=== PATIENT | female | born 1985 | race African-American/Black ===

== ENCOUNTER 2017-02-04 14:26 | Emergency (ER) | payer OTHER ==
[2017-02-04 14:34] VITALS: BMI 21.5
--- NOTE | 2017-02-04 14:56 | PDOC ---
History of Present Illness - History of Present Illness Initial Comments: 02/04/17 15:24 The pt is a 31 year old female who is 10 weeks with a PMH of fibromyalgia, anxiety, one spontaneous who presents to the ED complaining of generalized itchiness and hives for 6 weeks.The pt is also complaining af abdominal cramping, nausea, vomiting, loss of appetite. She lost 3 lbs in a week and is concerned about her baby. She didn't have US yet. She denies taking any medications besides vitamins and folic acid. The pt states that she had anxiety attack while being in waiting room in ED today. She visited her ELIGIBILITY AND OCCUPANCY INTERVIEWER 2 weeks ago and states that everything was normal. She denies vaginal discharge, bleeding, chest pain, SOB, cough, fever, chills. She denies dysuria, increased frequency, urgency, muscle pain, LOC. <Suzanne Reagan - Last Filed: 02/04/17 16:23> <Kathy Noonan - Last Filed: 02/05/17 15:46> - General Chief Complaint: Nausea/Vomiting Stated Complaint: Allergic Reaction Time Seen by Provider: 02/04/17 14:55 Past History - Past Medical History Psychiatric Problems: Yes (anxeity,panic attack) Other medical history: hives on body, fibromyalgia - Psycho/Social/Smoking Cessation Hx Anxiety: No Suicidal Ideation: No Smoking Status: No Smoking History: Never smoked Have you smoked in the past 12 months: No Number of Cigarettes Smoked Daily: 0 Information on smoking cessation initiated: No Hx Alcohol Use: No Drug/Substance Use Hx: No Substance Use Type: None <Suzanne Reagan - Last Filed: 02/04/17 16:23> <Kathy Noonan - Last Filed: 02/05/17 15:46> - Past Medical History Allergies/Adverse Reactions: Allergies Allergy/AdvReac Type Severity Reaction Status Date / Time No Known Allergies Allergy Verified 02/04/17 14:28 Review of Systems - Review of Systems Able to Perform ROS?: Yes Comments:: 02/04/17 15:47 REVIEW OF SYSTEMS CONSTITUTIONAL: loss of appetite, weight change Absent: fever, chills, diaphoresis, generalized weakness, malaise, HEENT: Absent: rhinorrhea, nasal congestion, throat pain, throat swelling, difficulty swallowing, mouth swelling, ear pain, eye pain, visual changes CARDIOVASCULAR: Absent: chest pain, syncope, palpitations, irregular heart rate, lightheadedness , peripheral edema RESPIRATORY: Absent: cough, shortness of breath, dyspnea with exertion, orthopnea, wheezing, stridor, hemoptysis GASTROINTESTINAL:nausea Absent: abdominal pain, abdominal distension, vomiting, diarrhea, constipation, melena, hematochezia GENITOURINARY: Absent: dysuria, frequency, urgency, hesitancy, hematuria, flank pain, genital pain MUSCULOSKELETAL: Absent: myalgia, arthralgia, joint swelling, back pain, neck pain SKIN: Absent: rash, itching, pallor NEUROLOGIC: Absent: headache, focal weakness or paresthesias, dizziness, unsteady gait, seizure, mental status changes, bladder or bowel incontinence PSYCHIATRIC: Absent: depression Is the patient limited Dominican proficient: No <Suzanne Reagan - Last Filed: 02/04/17 16:23> *Physical Exam - Vital Signs Last Vital Signs Temp Pulse Resp BP Pulse Ox 98.4 F 84 18 110/63 100 02/04/17 14:29 02/04/17 14:29 02/04/17 14:29 02/04/17 14:29 02/04/17 14:29 - Physical Exam Comments: 02/04/17 15:45 GENERAL: The patient is awake, alert, and fully oriented,anxious. HEAD: Normal with no signs of trauma. EYES: extraocular movements intact, sclera anicteric, conjunctiva clear. ENT: Ears normal, nares patent, oropharynx clear without exudates, moist mucous membranes. NECK: Trachea midline, full range of motion, supple. LUNGS: Breath sounds equal, clear to auscultation bilaterally, no wheezes, no crackles, no accessory muscle use. HEART: Regular rate and rhythm, S1, S2 without murmur, rub or gallop. ABDOMEN: Soft, nontender, nondistended, normoactive bowel sounds, no guarding, no rebound, no hepatosplenomegaly, no masses. EXTREMITIES: no edema. NEUROLOGICAL: Normal speech, no facial asymmetry, gait not observed. PSYCH: Normal mood, normal affect. SKIN: Warm, dry, normal turgor, no hives, no rash. <Suzanne Reagan - Last Filed: 02/04/17 16:23> - Vital Signs Last Vital Signs Temp Pulse Resp BP Pulse Ox 98.3 F 82 20 103/50 98 02/04/17 17:52 02/04/17 17:52 02/04/17 17:52 02/04/17 17:52 02/04/17 17:52 <Kathy Noonan - Last Filed: 02/05/17 15:46> ED Treatment Course - LABORATORY CBC & Chemistry Diagram: 02/04/17 15:41 02/04/17 15:41 <Suzanne Reagan - Last Filed: 02/04/17 16:23> - LABORATORY CBC & Chemistry Diagram: 02/04/17 15:41 02/04/17 15:41 - ADDITIONAL ORDERS Additional order review: 02/04/17 15:41 RBC 3.77 MCV 88.7 MCHC 33.7 RDW 14.1 MPV 7.5 - Medications Given in the ED: ED Medications Discontinued Medications Generic Name Dose Route Start Last Admin Trade Name Freq PRN Reason Stop Dose Admin Sodium Chloride 1,000 mls @ 1,000 mls/hr 02/04/17 15:37 02/04/17 16:08 Normal Saline - IV 02/04/17 16:36 1,000 mls/hr ASDIR STA Administration <Kathy Noonan - Last Filed: 02/05/17 15:46> Medical Decision Making - Medical Decision Making 02/04/17 15:48 The pt is a 31 year old female with a PMGH of miscarriage, fibromyalgia , anxiety who presents to ED complaining of cramping, itchiness and is concerned about her baby. We ordered quant. B HCG, UA, transvaginal US, CBC, CMP. NS 1 L. <Suzanne Reagan - Last Filed: 02/04/17 16:23> - Medical Decision Making SIGN OUT Case discussed in detail with oncoming Emergency Physician including history, physical exam and ancillary studies. Oncoming Emergency Physician has assumed care for the patient and will complete the evaluation and treatment. Transfer of care to Dr. Beckman at 5 PM awaiting all studies <Kathy Noonan - Last Filed: 02/05/17 15:46> *DC/Admit/Observation/Transfer <Suzanne Reagan - Last Filed: 02/04/17 16:23> <Kathy Noonan - Last Filed: 02/05/17 15:46> Diagnosis at time of Disposition: Qualifiers: Weeks of gestation: 9 weeks Qualified Code(s): Z3A.09 - 9 weeks gestation of - Discharge Dispostion Disposition: HOME Condition at time of disposition: Stable - Prescriptions Prescriptions: Ondansetron [Zofran Odt -] 4 mg SL BID #10 od.tablet - Patient Instructions Printed Discharge Instructions: DI for Anxiety -- Adult, DI for -- Discomforts and Remedies Additional Instructions: please continue your care with greige goods marker
[2017-02-04] MEDS ORDERED: SODIUM CHLORIDE 1,000 ML IV STA (15:37)
--- NOTE | 2017-02-04 15:40 | PDOC ---
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 They are and go away, and are associated with itching She did go to [facility], for evaluation She states she was getting some more hives today, and came in to be seen, and while in the waiting room became very anxious She came back here, and the hives were gone She states the hives are unrelated to eating or drinking She has had a lot of nausea and vomiting associated with this She denies any vaginal bleeding or spotting She denies any dysuria urgency or frequency She states that she has not had a ultrasound with this She denies any recent intercurrent illnesses, and the remainder the review of systems is negative - Physicial Exam PE: 02/04/17 16:47 Physical exam Last Vital Signs Temp Pulse Resp BP Pulse Ox 98.4 F 84 18 110/63 100 02/04/17 14:29 02/04/17 14:29 02/04/17 14:29 02/04/17 14:29 02/04/17 14:29 Patient is awake and ambulatory, and answering questions without difficulty GENERAL: The patient is awake, alert, and fully oriented, and in no apparent distress. HEAD: Normal with no signs of trauma. EYES: sclera anicteric, conjunctiva are normal. ENT: Moist mucous membranes. NECK: Normal range of motion, supple LUNGS: Breath sounds equal, clear to auscultation bilaterally. No wheezes, and no crackles. HEART: Regular rate and rhythm, normal S1 and S2 without murmur, rub or gallop. ABDOMEN: Soft, nontender, normoactive bowel sounds. No guarding, no rebound. No masses appreciated. EXTREMITIES: Normal range of motion, no edema. No clubbing or cyanosis. No cords, erythema, or tenderness. NEUROLOGICAL: Cranial nerves II through XII grossly intact. Normal speech, normal gait. PSYCH: Normal mood, normal affect. SKIN: Warm, Dry, no hives or rashes are noted at this time - Medical Decision Making 02/04/17 16:48 Patient with transient hives during this , who was already seen an manager occupational She denies any vaginal spotting or bleeding She has had a visit, but has not had her first ultrasound Will check labwork, quantitative beta, ultrasound, and call her SCLEROSCOPE TESTER SIGN OUT Case discussed in detail with oncoming Emergency Physician including history, physical exam and ancillary studies. Oncoming Emergency Physician has assumed care for the patient and will complete the evaluation and treatment. Transfer of care to Dr. Beckman at 5 PM awaiting all studies
[2017-02-04 16:04] LABS: MCH 29.9 pg (25.7-33.7); MCHC 33.7 g/dl (32.0-36.0); MEAN CELL VOLUME 88.7 fl (80-96); MEAN PLT VOLUME 7.5 fl (7.5-11.1); PLATELET COUNT 198 K/MM3 (134-434); RDW 14.1 % (11.6-15.6); WHITE BLOOD COUNT 9.9 K/mm3 (4.0-10.0)
[2017-02-04 16:30] LABS: ALBUMIN 3.6 g/dl (3.4-5.0); ALK PHOS 57 U/L (45-117); ANION GAP 9 (8-16); BILIRUBIN,TOTAL 0.2 mg/dL (0.2-1.0); CO2 25 mmol/L (21-32); CREATININE 0.5 mg/dL (0.55-1.02); GLUCOSE,RANDOM 74 mg/dL (74-106); SGOT/AST 20 U/L (15-37); SGPT/ALT 32 U/L (12-78); TOT PROT 6.7 g/dl (6.4-8.2)
[2017-02-04 17:53] VITALS: BP 103/50; PULSE 82; TEMP 98.3
--- NOTE | 2017-02-04 17:55 | PDOC ---
*Physical Exam - Vital Signs Last Vital Signs Temp Pulse Resp BP Pulse Ox 98.3 F 82 20 103/50 98 02/04/17 17:52 02/04/17 17:52 02/04/17 17:52 02/04/17 17:52 02/04/17 17:52 ED Treatment Course - LABORATORY CBC & Chemistry Diagram: 02/04/17 15:41 02/04/17 15:41 - ADDITIONAL ORDERS Additional order review: Laboratory Results 02/04/17 02/04/17 02/04/17 15:41 15:41 15:41 Sodium 139 Potassium 4.2 Chloride 105 Carbon Dioxide 25 Anion Gap 9 BUN 6 L Creatinine 0.5 L Creat Clearance w eGFR > 60 Random Glucose 74 Calcium 9.0 Total Bilirubin 0.2 AST 20 ALT 32 Alkaline Phosphatase 57 Total Protein 6.7 Albumin 3.6 Beta HCG, Quant 859849.5 Blood Type O POSITIVE Antibody Screen Negative 02/04/17 15:41 RBC 3.77 MCV 88.7 MCHC 33.7 RDW 14.1 MPV 7.5 - Medications Given in the ED: ED Medications Discontinued Medications Generic Name Dose Route Start Last Admin Trade Name Freq PRN Reason Stop Dose Admin Sodium Chloride 1,000 mls @ 1,000 mls/hr 02/04/17 15:37 02/04/17 16:08 Normal Saline - IV 02/04/17 16:36 1,000 mls/hr ASDIR STA Administration *DC/Admit/Observation/Transfer Diagnosis at time of Disposition: Qualifiers: Weeks of gestation: 9 weeks Qualified Code(s): Z3A.09 - 9 weeks gestation of - Discharge Dispostion Disposition: HOME Condition at time of disposition: Stable - Patient Instructions Printed Discharge Instructions: DI for -- Discomforts and Remedies, DI for Anxiety -- Adult Additional Instructions: please continue your care with tube drawer
== END 2017-02-04 18:26 | disposition home or self-care (01) ==
LOC: JER 14:26
PROC: 3E0337Z Introduction of Electrolytic and Water Balance Substance into Peripheral Vein, Percutaneous Approach (ICD-10-PCS; principal; 2017-02-04)
DX: O26.891 Other specified pregnancy related conditions, first trimester (principal); Z3A.09 9 weeks gestation of pregnancy
CPT/HCPCS: 36415; 76801-TC; 80053; 84702; 85027; 86850; 86900; 86901; 99283-25

== ENCOUNTER 2017-09-05 10:40 | Inpatient (IN) | payer OTHER ==
[2017-09-05] MEDS ORDERED: DINOPROSTONE 10 MG VAGINAL SUPPOSITORY VG ONE (11:30)
[2017-09-05 13:43] VITALS: BMI 30.7
[2017-09-05 14:07] LABS: BASOPHIL 0.1 % (0-2.0); EOSINOPHIL 0.3 % (0-4.5); MCH 30.3 pg (25.7-33.7); MCHC 34.2 g/dl (32.0-36.0); MEAN CELL VOLUME 88.5 fl (80-96); MEAN PLT VOLUME 10.2 fl (7.5-11.1); NEUTROPHILS 76.7 % (42.8-82.8); PLATELET COUNT 154 K/MM3 (134-434); RDW 14.1 % (11.6-15.6); WHITE BLOOD COUNT 7.1 K/mm3 (4.0-10.0)
[2017-09-05 14:32] LABS: ANION GAP 8 (8-16); CALCIUM 8.4 mg/dL (8.5-10.1); CO2 22 mmol/L (21-32); CREATININE 0.4 mg/dL (0.55-1.02); GLUCOSE,RANDOM 94 mg/dL (74-106)
[2017-09-05 14:38] LABS: INR 0.96 (0.82-1.09); PROTHROMBIN TIME (PATIENT) 10.9 SEC (9.98-11.88)
[2017-09-05 14:40] LABS: ACTIVATED PTT 27.2 SECONDS (26.9-34.4)
--- NOTE | 2017-09-05 15:31 | HP ---
Admitting History and Physical - Admission Chief Complaint: labor pains, LOF History of Present Illness: 31 y/o G1 at 40.4 weeks seen in the clinic today and had pos nitazine with lof. Upon arrival to hospital for eval, nitazine is negative and sent fro eric that was dcreased from yesterday. She is a pt of [facility]. GBS neg, hiv neg, rpr neg EFW is 7.5 lbs, vtx History Source: Patient Limitations to Obtaining History: No Limitations - Past Medical History PREMISES TECHNICIAN: No: Alzheimer's, CVA, Dementia, Migraine, Multiple Sclerosis, Peripheral Neuropathy, Parkinson's, Seizure, Syncope, TIA, Vertigo, Other Cardiovascular: No: AFIB, Aneurysm, Aortic Insufficiency, Aortic Stenosis, CAD, CHF, Deep Vein Thrombosis, HTN, Hyperlipdemia, [place], Mitral Insufficiency, Mitral Stenosis, Murmur, Pulmonary Hypertension, Other Pulmonary: No: Asthma, Bronchitis, Cancer, COPD, O2 Dependent, Pneumonia, Previously Intubated, Pulmonary Embolus, Pulmonary Fibrosis, Sleep Apnea, Other Gastrointestinal: No: Ascites, Cancer, Constipation, Crohn's Disease, Diverticulitis, Diverticulosis, Esophageal Varices, Gastritis, GERD, GI Bleed, Hemorrhoids, Hiatal Hernia, Inflamatory Bowel Disease, Irritable Bowel Disease, Pancreatitis, Peptic Ulcer Disease, Ulcerative Colitis, Other Hepatobiliary: No: Cirrhosis, Cholelithiasis, Cholecystitis, Choledocholithiasis , Hepatitis A, Hepatitis B, Hepatitis C, Other Renal/: No: Renal Failure, Renal Inusuff, BPH, Cancer, Hematuria, Hemodialysis , Neurogenic Bladder, Renal Calculi, UTI, Other Reproductive: No: Ectopic , Endometriosis, Fibroids, PID, Polycystic Ovary Syndrome, Postmenopausal, Other ...LMP: 01/09/12 ...: 2 ...Para: 0 Heme/Onc: No: Anemia, B12 Deficiency, Bleeding Disorder, Cancer, Current Chemotherapy, Current Radiation Therapy, Hemochromatosis, Hypercoaguable State, Myeloproliferative Synd, Sickle Cell Disease, Sickle Cell Trait, Thrombocytopenia, Other Infectious Disease: No: AIDS, C-Diff, Herpes Zoster, HIV, MRSA, STD's, Tuberculosis, VREF, Other Psych: No: Addictions, Anxiety, Bipolar, Depression, Panic, Psychosis, Schizophrenia, Other Musculoskeletal: No: Bursitis, Chronic low back pain, Hemiparesis, Hemiplegia, Osteoarthritis, Paraplegia, Other Rheumatology: No: Fibromyalgia, Gout, Lupus, Rheumatoid Arthritis, Sarcoidosis, Vasculitis, Other ENT: No: Allergic Rhinitis, Sinusitis, Other Endocrine: No: Columbia's Disease, Celestine's Disease, Diabetes Insipidus, Diabetes Mellitus, Hyperparathyroidism, Hyperthyroidism, Hypothyroidism, Osteopenia, SIADH, Other Dermatology: No: Basal Cell, Cellulitis, Eczema, Melanoma, Psoriasis, Squamous Cell, Other - Past Surgical History Past Surgical History: No: None, AAA Repair, AICD, Amputation, Appendectomy, Arthrosocopy, AV Fistula/Graft, Bariatric Surgery, Breast Biopsy, Bypass, CABG, Carotid Endarterectomy, Cataract Removal, Cholecystectomy, Colectomy, Colonoscopy, Colostomy, Craniotomy, , Cystectomy, Hernia Repair, Hysterectomy, Ileal Conduit, Ileosotomy, Joint Replacement, Kidney Transplant, Laminectomy, Liver Transplant, Mastectomy, Nephrectomy, Oopherectomy, Orchiectomy, Permanent Pacemaker, Prostatectomy, Splenectomy, Stent, Thoracotomy , TURP, Tonsillectomy, Tubal Ligation, Upper Endoscopy, Valve Replacement, Vasectomy, Vein Stripping/Ligation - Advance Directives Advance Directives: No: Living Will, Health Care Proxy, DNR, Organ Donor, Tissue Donor, MOLST - Smoking History Smoking history: Never smoked Have you smoked in the past 12 months: No Aproximately how many cigarettes per day: 0 - Alcohol/Substance Use Hx Alcohol Use: No History of Substance Use: denies: None, Cocaine, Heroin, Marijuana, Prescription , Tranquilizers - Social History Usual Living Arrangement: No: Alone, With Spouse, With Parent, With Significant Other, With Child, Assisted Living, Long Term, Other Home Medications - Allergies Allergies/Adverse Reactions: Allergies Allergy/AdvReac Type Severity Reaction Status Date / Time No Known Allergies Allergy Verified 09/05/17 11:35 - Home Medications Home Medications: Ambulatory Orders Ferrous Gluconate [Iron] 256 mg PO DAILY 09/05/17 Vit No.130/Iron/FA [ Vitamins] 1 each PO DAILY 09/05/17 Review of Systems - Review of Systems Constitutional: reports: No Symptoms Eyes: reports: No Symptoms HENT: reports: No Symptoms Neck: reports: No Symptoms Cardiovascular: reports: No Symptoms Respiratory: reports: No Symptoms Gastrointestinal: reports: No Symptoms Genitourinary: reports: No Symptoms Breasts: reports: No Symptoms Reported Musculoskeletal: reports: No Symptoms Integumentary: reports: No Symptoms Neurological: reports: No Symptoms Endocrine: reports: No Symptoms Hematology/Lymphatic: reports: No Symptoms Psychiatric: reports: No Symptoms Physical Examination Vital Signs: Vital Signs Temperature 97.6 F 09/05/17 14:00 Pulse Rate 79 09/05/17 15:00 Respiratory Rate 18 09/05/17 15:00 Blood Pressure 115/70 09/05/17 15:00 O2 Sat by Pulse Oximetry (%) Constitutional: Yes: Well Nourished Eyes: Yes: WNL HENT: Yes: WNL Neck: Yes: WNL, Tenderness Cardiovascular: Yes: WNL Respiratory: Yes: WNL Gastrointestinal: Yes: WNL Renal/: Yes: WNL Breast(s): Yes: WNL Musculoskeletal: Yes: WNL Extremities: Yes: WNL Integumentary: Yes: WNL Neurological: Yes: WNL Labs: CBC, BMP 09/05/17 13:40 09/05/17 13:40 Assessment/Plan as above admit labs cat one tracing and 2 cm and posterior. reg diet
[2017-09-05] MEDS: ELECTROLYTE-148 SOLN 1,000 ML IV SCH (22:30)
[2017-09-05] MEDS ORDERED: FENTANYL/BUPIVACAINE/NS/PF - PCEA - 50 ML DISP.SYRIN EP SCH (22:45)
[2017-09-06] MEDS ORDERED: PROMETHAZINE HCL 25 MG/1 ML VIAL IVPB ONE (01:00)
[2017-09-06] MEDS ORDERED: BUTORPHANOL TARTRATE 1 MG/ML VIAL IVPB ONE (01:00)
[2017-09-06] MEDS ORDERED: AMPICILLIN - 100 ML IVPB ONE (02:00)
[2017-09-06] MEDS: AMPICILLIN - 100 ML IVPB SCH ×5 (06:00→23:35)
--- NOTE | 2017-09-06 06:33 | PN ---
Ante-Partal Exam - Subjective Vital Signs: Vital Signs Temperature 98.0 F 09/06/17 05:00 Pulse Rate 94 H 09/06/17 05:40 Respiratory Rate 20 09/06/17 05:40 Blood Pressure 100/75 09/06/17 05:40 O2 Sat by Pulse Oximetry (%) 98 09/06/17 05:40 Bleeding: No Headache: No Visual changes: No Right upper quadrant pain: No - Contractions Contractions: Yes Regularity: Irregular Intensity: Mild Monitor Mode: External - Exam during Labor Heart Rate: 150 Variability: Moderate Heart Rate Location: Midline Category: I Monitor Accelerations: Present Exam: Vaginal Dilatation (cm): 4 Amniotic Membrane Status: Ruptured Presentation: Vertex Station: -3 - Assessment/Plan Assessment/Plan: pt received an epidural and now 4 cm comfortable on antibiotics for presumed srom although membrane felt
[2017-09-06] MEDS ORDERED: OXYTOCIN 15 UNITS/ LR 250 ML 250 ML IVPB SCH (06:45)
[2017-09-06] MEDS: ELECTROLYTE-148 SOLN 1,000 ML IV SCH (14:20)
--- NOTE | 2017-09-06 14:30 | PN ---
Progress Note, Labor Vaginal Exam #2 Labor Exam Date: 09/06/17 Labor Exam Time: 14:27 Heart Rate (range): 130 mod dena, +accel, no decels, no baseline change Dilatation: 6-7 Effacement (%): 80 Amniotic Membrane Status: Ruptured Presentation: Vertex/Position Station: -2 Remarks: forebag ruptured Pt admitted with srom, on pitocin. continue current management anticipate Dr. Almonte
--- NOTE | 2017-09-06 16:25 | PN ---
Ante-Partal Exam - Subjective Vital Signs: Vital Signs Temperature 98.6 F 09/06/17 15:15 Pulse Rate 125 H 09/06/17 15:15 Respiratory Rate 18 09/06/17 15:15 Blood Pressure 92/78 09/06/17 15:15 O2 Sat by Pulse Oximetry (%) 99 09/06/17 15:15 Bleeding: No Headache: No Visual changes: No Right upper quadrant pain: No - Contractions Contractions: Yes Regularity: Regular Intensity: Mild/Mod Monitor Mode: External - Exam during Labor Heart Rate: 130 Variability: Moderate Category: I Monitor Accelerations: Present Monitor Decelerations: None Exam: Vaginal Dilatation (cm): 7-8 Effacement (%): 90 Amniotic Membrane Status: Ruptured Presentation: Vertex Station: 0 Remarks: pt on pitocin continue to titrate cat 1 tracing cont current management
--- NOTE | 2017-09-06 18:49 | PN ---
Ante-Partal Exam - Subjective Vital Signs: Vital Signs Temperature 98.1 F 09/06/17 18:00 Pulse Rate 73 09/06/17 17:30 Respiratory Rate 18 09/06/17 17:30 Blood Pressure 122/74 09/06/17 17:30 O2 Sat by Pulse Oximetry (%) 99 09/06/17 17:30 Bleeding: No Headache: No Visual changes: No Right upper quadrant pain: No - Contractions Contractions: Yes Regularity: Regular Intensity: Moderate Monitor Mode: External - Exam during Labor Heart Rate: 130 Variability: Moderate Category: II Monitor Accelerations: Present Monitor Decelerations: Variable Exam: Vaginal Dilatation (cm): 8-9 Effacement (%): 100 Amniotic Membrane Status: Ruptured Amniotic Fluid: Clear Presentation: Vertex Station: 0 - Assessment/Plan Assessment/Plan: active labor continue pitocin expectant management
[2017-09-06] MEDS ORDERED: BISACODYL 10 MG SUPP.RECT RC PRN (20:56)
[2017-09-06] MEDS ORDERED: oxyCODONE HCL 5 MG TABLET PO PRN (20:56)
[2017-09-06] MEDS ORDERED: BENZOCAINE 20% 57 GM BOTTLE TP PRN (20:56)
[2017-09-06] MEDS ORDERED: ACETAMINOPHEN 325 MG TABLET (FP) PO PRN (20:56)
[2017-09-06] MEDS ORDERED: IBUPROFEN 600 MG TABLET (FP) PO PRN (20:56)
[2017-09-06] MEDS ORDERED: BENZOCAINE 28 GM HEMORRHOIDAL OINTMENT TP PRN (20:56)
[2017-09-06] MEDS ORDERED: WITCH HAZEL 50% (TUCKS) 40 PAD/JAR PAD TP PRN (20:56)
--- NOTE | 2017-09-06 20:56 | PN ---
Delivery - Delivery Vaginal Delivery: Spontaneous Type of Anesthesia: Local, Epidural Episiotomy/Laceration: 2nd degree EBL (cc): 500 Delivery, Single - Stages of Labor Placenta: Yes: Spontaneous, Uterine Exploration, Normal 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 - Condition of Infant Infant Gender: Female Position: Left, OA - [place] Feeding Plan Initial Plan: Exclusive throughout hospitalization Remarks - Remarks Remarks: Pt fully dilated and pushing delivered viable female from MARTY cephalic presentation over intact perineum. Nuchal cord x 1 easily reduced. Anterior shoulder and body delivered spontaneously and without difficulty. Placenta delivered intact with 3vc. Membranes noted to be trailing and manual exploration done with removal of membranes. No periurethral or cervical laceration. Bilateral labial lacerations repaired with 2.0 vicryl with excellent hemostasis and mu-ism of anatomy. Fundus firm. Vault empty. Sponge count correct
[2017-09-06] MEDS ORDERED: OXYTOCIN 20 UNITS in 0.9% NS 1,000 ML IV SCH (21:00)
[2017-09-07] MEDS: FERROUS SO4 325 MG TABLET (FP) PO SCH ×2 (08:03→13:15)
[2017-09-07 09:15] LABS: BASOPHIL 0.1 % (0-2.0); EOSINOPHIL 0.3 % (0-4.5); MCH 29.7 pg (25.7-33.7); MCHC 33.4 g/dl (32.0-36.0); MEAN CELL VOLUME 88.9 fl (80-96); MEAN PLT VOLUME 10.6 fl (7.5-11.1); NEUTROPHILS 80.2 % (42.8-82.8); PLATELET COUNT 134 K/MM3 (134-434); RDW 14.3 % (11.6-15.6); WHITE BLOOD COUNT 12.1 K/mm3 (4.0-10.0)
[2017-09-07] MEDS: PRENATAL VITAMINS W/ FOLIC ACID TABLET (FP) PO SCH (09:41)
--- NOTE | 2017-09-07 12:11 | PN ---
Post Progress Note Post Day: 1 Type of Delivery: Vital Signs: Vital Signs Temperature 98.1 F 09/07/17 10:00 Pulse Rate 76 09/07/17 10:00 Respiratory Rate 20 09/07/17 10:00 Blood Pressure 99/62 09/07/17 10:00 O2 Sat by Pulse Oximetry (%) 99 09/06/17 21:45 Breast Exam: Yes: Soft Uterus: Yes: Fundus Firm Abdomen/GI: Yes: Abdomen soft Lochia: Yes: Rubra Lochia, amount: Moderate Extremities: Yes: Calves non-tender Perineum: Yes: Laceration Activity: Ambulating - Labs Labs: CBC WBC 12.1 K/mm3 (4.0-10.0) H D 09/07/17 08:25 RBC 3.20 M/mm3 (3.60-5.2) L 09/07/17 08:25 Hgb 9.5 GM/dL (10.7-15.3) L D 09/07/17 08:25 Hct 28.4 % (32.4-45.2) L D 09/07/17 08:25 MCV 88.9 fl (80-96) 09/07/17 08:25 MCH 29.7 pg (25.7-33.7) 09/07/17 08:25 MCHC 33.4 g/dl (32.0-36.0) 09/07/17 08:25 RDW 14.3 % (11.6-15.6) 09/07/17 08:25 Plt Count 134 K/MM3 (134-434) 09/07/17 08:25 MPV 10.6 fl (7.5-11.1) 09/07/17 08:25 Neutrophils % 80.2 % (42.8-82.8) 09/07/17 08:25 Lymphocytes % 11.1 % (8-40) D 09/07/17 08:25 Monocytes % 8.3 % (3.8-10.2) 09/07/17 08:25 Eosinophils % 0.3 % (0-4.5) 09/07/17 08:25 Basophils % 0.1 % (0-2.0) 09/07/17 08:25 Problem List - Problems (1) care and examination of lactating mother Code(s): Z39.1 - ENCOUNTER FOR CARE AND EXAMINATION OF LACTATING MOTHER Assessment/Plan Pt ppd#1 s/p doing well pain management as needed plan for discharge home tomorrow
--- NOTE | 2017-09-07 12:14 | DS ---
Physical Exam-SKY CAP Vital Signs: Vital Signs Temperature 98.1 F 09/07/17 10:00 Pulse Rate 76 09/07/17 10:00 Respiratory Rate 20 09/07/17 10:00 Blood Pressure 99/62 09/07/17 10:00 O2 Sat by Pulse Oximetry (%) 99 09/06/17 21:45 Constitutional: Yes: Well Nourished, No Distress, Calm Eyes: Yes: WNL, Conjunctiva Clear, EOM Intact HENT: Yes: WNL, Atraumatic, Normocephalic Neck: Yes: WNL, Supple, Trachea Midline Cardiovascular: Yes: WNL, Regular Rate and Rhythm Respiratory: Yes: WNL, Regular, CTA Bilaterally Gastrointestinal: Yes: WNL ...Rectal Exam: Yes: WNL Renal/: Yes: WNL Breast(s): Yes: WNL Musculoskeletal: Yes: WNL Extremities: Yes: WNL Integumentary: Yes: WNL Neurological: Yes: WNL, Alert, Oriented ...Motor Strength: WNL Psychiatric: Yes: WNL, Alert, Oriented Labs: CBC, BMP 09/07/17 08:25 09/05/17 13:40 Delivery - Delivery Vaginal Delivery: Spontaneous Type of Anesthesia: Local, Epidural Episiotomy/Laceration: Vaginal Extension/lac, 2nd degree EBL (cc): 500 Delivery, Single - Stages of Labor Date 1st Stage Initiatied: 09/05/17 Time 1st Stage Initiated: 07:50 Date 2nd Stage Initiated: 09/06/17 Time 2nd Stage Initiated: 00:45 Date of Delivery: 09/06/17 Time of Delivery: 19:56 Time Placenta Delivered: 19:58 Placenta: Yes: Spontaneous, Uterine Exploration, Normal 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 - 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 You may walk unlimited hilda of and climb stairs. You may resume driving the car when you feel safe and comfortable behind the wheel. No sexual activity as instructed. Wound care If you have a bandage, leave it on, and keep dry for 48-72 hours. After that time discard the outer bandage. If they are tapes on the skin under the out of bandage leave them in place. They will peel off in the next 7 to 10 days. Do Not Peel them off. You may shower the day after surgery. If there are tapes present on the skin, you may shower over them. Diet There are no dietary restrictions. Eat healthy, high-fiber foods. Drink 6 to 8 glasses of liquid each day. This will assist in keeping your bowels are regular. Pain management You may take Tylenol or acetaminophen or Ibuprofen (for example, Motrin, Advil etc.) from my pain prescription medication is ordered should be taken as prescribed for moderate to severe pain. Call MD for any of the following: Severe pain not relieved by medication Fever of 101 or higher Excessive bleeding or drainage on dressing Inability to urinate Disposition: HOME - Home Medications Comprehensive Discharge Medication List: Ambulatory Orders Ferrous Gluconate [Iron] 256 mg PO DAILY 09/05/17 Vit No.130/Iron/FA [ Vitamins] 1 each PO DAILY 09/05/17
[2017-09-07] MEDS ORDERED: SENNOSIDES/DOCUSATE COMBO (SENNA PLUS) TABLET (UD) PO PRN (22:00)
[2017-09-08] MEDS: PRENATAL VITAMINS W/ FOLIC ACID TABLET (FP) PO SCH (09:23)
[2017-09-08] MEDS ORDERED: FLU VACC QS2017-18 36MOS UP/PF 60 MCG/0.5 ML SYRINGE IM ONE (10:00)
[2017-09-08] MEDS ORDERED: DIPHTH,PERTUSS(ACELL),TET 0.5 ML DISP.SYRIN IM ONE (10:00)
[2017-09-08] MEDS ORDERED: FERROUS SO4 325 MG TABLET (FP) PO SCH (10:00)
[2017-09-08 12:49] VITALS: BP 118/67; PULSE 74; TEMP 98.7
== END 2017-09-08 11:50 | disposition home or self-care (01) | DRG 560 ==
LOC: JLDR 10:40 → J3W 09-06 22:34
PROVIDERS: ADMIT Obstetrics & Gynecology; ATTEND Obstetrics & Gynecology
PROC: 10E0XZZ Delivery of Products of Conception, External Approach (ICD-10-PCS; principal; 2017-09-06)
PROC: 0W8NXZZ Division of Female Perineum, External Approach (ICD-10-PCS; 2017-09-06)
PROC: 0KQM0ZZ Repair Perineum Muscle, Open Approach (ICD-10-PCS; 2017-09-06)
DX: O70.1 Second degree perineal laceration during delivery (principal); Z3A.40 40 weeks gestation of pregnancy; Z37.0 Single live birth
CPT/HCPCS: 36415; 59409; 80048; 85025; 85610; 85730; 86593; 86803; 86850; 86900; 86901; 90686; 90715; G0008

== ENCOUNTER 2018-08-13 15:15 | Emergency (ER) | payer OTHER ==
--- NOTE | 2018-08-13 15:46 | PDOC ---
Rapid Medical Evaluation Chief Complaint: Headache Time Seen by Provider: 08/13/18 15:43 Medical Evaluation: Allergies Allergy/AdvReac Type Severity Reaction Status Date / Time No Known Allergies Allergy Verified 08/13/18 15:42 08/13/18 15:43 CC: KHAN and loss of appetite/insomnia HPI: Pt is an 32 YO who states she has a hx of migraines and she has had an intermittent KHAN x 2-3 days. She denies this being the worst KHAN of her life, denies fever. I have performed a brief in- person evaluation of this patient. Pertinent Physical Findings: Skin: Clear Lungs: Clear Heart: RRR Neuro: Alert Psych: Appropriate affect I have ordered: nothing at this time The patient will proceed to: to [facility] for further evaluation Discharge Disposition - Diagnosis Headache Qualifiers: Headache type: unspecified Headache chronicity pattern: acute headache Intractability: not intractable Qualified Code(s): R51 - Headache - Referrals - Patient Instructions - Post Discharge Activity
[2018-08-13 15:51] VITALS: BP 102/52; PULSE 67; TEMP 98.1; BMI 25.6
--- NOTE | 2018-08-13 16:49 | PDOC ---
History of Present Illness - General Chief Complaint: Headache Stated Complaint: HEADACHE Time Seen by Provider: 08/13/18 15:43 History Source: Patient Exam Limitations: No Limitations - History of Present Illness Initial Comments: 08/13/18 16:40 Patient is here with 1-year-old daughter both with complaints of URI symptoms that are mild. Patient complaints of headache pain but headache is different from her classic migraine pain which is generally occipital and unilateral. This pain is bilateral temporal across forehead and behind her eyes. States feels congested but without fever. No cough, no nasal drainage, no sore throat pain. Has used no medications or treatments for relief. Tried her cool or warm packs per her eyes but did not have any resolved. Severity: Yes: mild, moderate Associated Symptoms: reports: denies symptoms. denies: fever/chills, nausea/ vomiting Past History - Travel Traveled outside of the country in the last 30 days: No Close contact w/someone who was outside of country & ill: No - Past Medical History Allergies/Adverse Reactions: Allergies Allergy/AdvReac Type Severity Reaction Status Date / Time No Known Allergies Allergy Verified 08/13/18 15:42 Home Medications: Ambulatory Orders Ferrous Gluconate [Iron] 256 mg PO DAILY 09/05/17 Vit No.130/Iron/Folic [ Vitamins] 1 each PO DAILY 09/05/17 Ibuprofen [Motrin -] 600 mg PO QID #120 tablet 09/07/17 Asthma: No Cancer: No Cardiac Disorders: No COPD: No Diabetes: No HTN: No Psychiatric Problems: Yes (anxeity,panic attack) Seizures: No Thyroid Disease: No - Suicide/Smoking/Psychosocial Hx Smoking Status: No Smoking History: Never smoked Have you smoked in the past 12 months: No Number of Cigarettes Smoked Daily: 0 Information on smoking cessation initiated: No Hx Alcohol Use: No Drug/Substance Use Hx: No Substance Use Type: None Hx Substance Use Treatment: No Review of Systems - Review of Systems Able to Perform ROS?: Yes Is the patient limited Maltese proficient: Yes Constitutional: Yes: Symptoms Reported, See HPI, Chills, Malaise HEENTM: Yes: Symptoms Reported, See HPI (states hasn't slept well in the past few days), Nose Congestion Respiratory: Yes: See HPI. No: Symptoms reported Musculoskeletal: Yes: Symptoms Reported All Other Systems: Reviewed and Negative *Physical Exam - Vital Signs Last Vital Signs Temp Pulse Resp BP Pulse Ox 98.1 F 67 16 102/52 L 99 08/13/18 15:43 08/13/18 15:43 08/13/18 15:43 08/13/18 15:43 08/13/18 15:43 - Physical Exam General Appearance: Yes: Nourished, Appropriately Dressed HEENT: positive: CHARLETTE, Normal ENT Inspection, TMs Normal (congested but landmarks easily visualized), Pharynx Normal, Nasal Congestion (frontal and ethmoid sinus tenderness and fullness.), Rhinorrhea, Sinus Tenderness Neck: positive: Supple, Lymphadenopathy (R), Lymphadenopathy (L). negative: Tender Respiratory/Chest: positive: Lungs Clear, Normal Breath Sounds. 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 Mother encouraged to continue over-the- counter medications and conservative measures will follow-up with PMD as needed *DC/Admit/Observation/Transfer Diagnosis at time of Disposition: Headache Qualifiers: Headache type: unspecified Headache chronicity pattern: acute headache Intractability: not intractable Qualified Code(s): R51 - Headache - Discharge Dispostion Disposition: HOME Condition at time of disposition: Stable Decision to Admit order: No - Referrals - Patient Instructions Printed Discharge Instructions: DI for Sinus Headache, DI for Common Cold Additional Instructions: Rest, drink lots of fluids: Teas, water, soups, Pedialyte Saltwater gargles Steamy showers/seem to face break up mucus Avoid contact with others until fevers and cough resolved Lots of handwashing and good hygiene Continue [id number] medications for symptomatic relief Tylenol or Motrin for fever and pain Followup with private physician in one to 2 days as needed Return to emergency department for worsened symptoms, fevers, dehydration - Post Discharge Activity
== END 2018-08-13 16:51 | disposition home or self-care (01) ==
LOC: JERFT 15:15
DX: R51 Headache (principal)
CPT/HCPCS: 99281-25

== ENCOUNTER 2018-11-01 23:29 | Emergency (ER) | payer OTHER ==
--- NOTE | 2018-11-01 23:41 | PDOC ---
History of Present Illness - General Stated Complaint: Anxiety History Source: Patient - History of Present Illness Initial Comments: 11/01/18 23:55 The patient is a 33 year old female with a PMH of fibromyalgia who presents to our ED c/o anxiety. Patient states she has been feeling anxious since Friday with intermittent 2-3 episodes of losing focus and concentration, stating that a person can be talking to her and she "spaces out" without losing consciousness. States she feels overwhelmed by care of her infant daughter. States she does not work outside the home and is feels lonely and overwhelmed during the day as her mother works and she is caring for the infant by herself. Notes a h/o similar anxiety 2-3 years previous for which she was given some medication samples by her PMD but she didn't feel it was working so she stopped taking them. Denies suicidal/homicidal ideation. Daughter being evaluated for cold symptoms @ same time. The patient denies chest pain, shortness of breath, abdominal pain, nausea/ vomiting, diarrhea/constipation. As per EMR patient was last evaluated in our ED in 2018 for headache at which time she was sent home with supportive care. Past History - Past Medical History Allergies/Adverse Reactions: Allergies Allergy/AdvReac Type Severity Reaction Status Date / Time No Known Allergies Allergy Verified 11/01/18 23:46 Home Medications: Ambulatory Orders Ferrous Gluconate [Iron] 256 mg PO DAILY 09/05/17 Vit No.130/Iron/Folic [ Vitamins] 1 each PO DAILY 09/05/17 Ibuprofen [Motrin -] 600 mg PO QID #120 tablet 09/07/17 Asthma: No Cancer: No Cardiac Disorders: No COPD: No Diabetes: No HTN: No Psychiatric Problems: Yes (anxeity,panic attack) Seizures: No Thyroid Disease: No - Suicide/Smoking/Psychosocial Hx Smoking Status: No Smoking History: Never smoked Have you smoked in the past 12 months: No Number of Cigarettes Smoked Daily: 0 Hx Alcohol Use: No Drug/Substance Use Hx: No Substance Use Type: None Hx Substance Use Treatment: No Review of Systems - Review of Systems Constitutional: No: Chills, Fever HEENTM: No: Recent change in vision Respiratory: No: Cough, Shortness of Breath Cardiac (ROS): No: Chest Pain, Lightheadedness, Palpitations ABD/GI: No: Constipated, Diarrhea, Nausea, Vomiting : No: Burning, Dysuria Psychiatric: Yes: Anxiety, Stressors *Physical Exam - Physical Exam General Appearance: Yes: Nourished, Appropriately Dressed HEENT: positive: Normal Voice, Hearing Grossly Normal Neck: positive: Trachea midline, Supple Respiratory/Chest: positive: Lungs Clear, Normal Breath Sounds Cardiovascular: positive: Regular Rate, S1, S2 Extremity: positive: Normal Capillary Refill, Normal Inspection Integumentary: positive: Normal Color, Dry, Warm Neurologic: positive: Fully Oriented, Alert Medical Decision Making - Medical Decision Making 11/02/18 00:25 33 year old with anxiety. No suicidal/homicidal ideations. VS unremarkable. Physical exam shows normal cardiac, respiratory and neurologic exams. Daughter being evaluated for viral URI symptoms. Patient counseled on stress relieving techniques. Will discharge home with return precautions and PMD follow-up. I discussed the physical exam findings, ancillary test results and final diagnoses with the patient. I answered all of the patient's questions. The patient was satisfied with the care received and felt comfortable with the discharge plan and treatment plan. The patient will return to the Emergency Department with any new, persistent or worsening symptoms. *DC/Admit/Observation/Transfer Diagnosis at time of Disposition: Anxiety - Discharge Dispostion Disposition: HOME Condition at time of disposition: Good Decision to Admit order: No - Referrals - Patient Instructions Printed Discharge Instructions: Get a Handle on Stress with Physical Fitness, Tips for Reducing Stress in Your Life, Stress (Alternative Therapy), DI for Anxiety -- Adult Additional Instructions: Please follow-up with your primary care doctor in the next 3 days. You can try relaxation techniques including yoga, walking outdoors, and journaling to reduce your stress and anxiety. Return to the Emergency Department immediately for any new/worsening/concerning symptoms including thoughts of harming yourself or others. - Post Discharge Activity
[2018-11-01 23:46] VITALS: BP 98/71; PULSE 61; TEMP 98.7; BMI 24.7
--- NOTE | 2018-11-02 | PDOC ---
Attending Attestation - HPI HPI: 11/02/18 01:07 The patient is a 33 year old female, with a significant PMH of fibromyalgia who presents to the emergency department with anxiety that began approximately 5 days ago. The patient states shes been intermittently spacing out for the past few days without losing consciousness. The patient reports she had similar episodes 2-3 years ago where her PCP gave her sample medications that she stopped using. She also reports shes a single mom who lives with her mom and mentions her child has a cold. The patient denies chest pain, shortness of breath, headache and dizziness. Denies fever, chills, nausea, vomit, diarrhea and constipation. Denies dysuria, frequency, urgency and hematuria. Allergies: NKDA Past surgical history: None reported Social history: None reported PCP: None reported Documentation prepared by Ever Cardona, acting as director of graduate medical education for Eliane Andrew MD. - Physicial Exam PE: 11/02/18 01:07 GENERAL: Awake, alert, and fully oriented, in no acute distress HEAD: No signs of trauma EYES: PERRLA, EOMI, sclera anicteric, conjunctiva clear ENT: Auricles normal inspection, hearing grossly normal, nares patent, oropharynx clear without exudates. Moist mucosa NECK: Normal ROM, supple, no lymphadenopathy, JVD, or masses LUNGS: Breath sounds equal, clear to auscultation bilaterally. No wheezes, and no crackles HEART: Regular rate and rhythm, normal S1 and S2, no murmurs, rubs or gallops ABDOMEN: Soft, nontender, normoactive bowel sounds. No guarding, no rebound. No masses EXTREMITIES: Normal range of motion, no edema. No clubbing or cyanosis. No cords, erythema, or tenderness NEUROLOGICAL: Cranial nerves II through XII grossly intact. Normal speech, normal gait SKIN: Warm, Dry, normal turgor, no rashes or lesions noted. Documentation prepared by Ever Cardona, acting as director of graduate medical education for Eliane Andrew MD. <Ever Cardona - Last Filed: 11/02/18 01:07> - Resident Resident Name: Natali Ayala - ED Attending Attestation I have performed the following: I have examined & evaluated the patient, The case was reviewed & discussed with the resident, I agree w/resident's findings & plan - Medical Decision Making 11/02/18 02:33 Pt has normal exam. She is anxious and she was told ways to cope. Pt also advised to switch from breast milk to cow's milk, now that child is 14 mos old. Pt will follow with her own PMD. Exam and vitals normal. Pt is neither suicidal nor homicidal and she able to care for her daughter who is 14 mos old. Pt is accompanied by the baby's dad. <Eliane Andrew - Last Filed: 11/02/18 02:34>
== END 2018-11-02 00:55 | disposition home or self-care (01) ==
LOC: JER 23:29
DX: F41.9 Anxiety disorder, unspecified (principal); F43.9 Reaction to severe stress, unspecified; Z63.79 Other stressful life events affecting family and household
CPT/HCPCS: 99281-25

== ENCOUNTER 2024-03-12 09:37 | Emergency (ER) | payer OTHER ==
[2024-03-12 09:49] VITALS: BMI 29.2
[2024-03-12] MEDS ORDERED: HYDROmorphone HCl 2 MG/ML VIAL ONE (11:26)
[2024-03-12] MEDS ORDERED: ONDANSETRON 4 MG/2 ML VIAL ONE (11:28)
[2024-03-12 11:34] LABS: EPI CELLS 5 /uL (0-25.1); HYALINE CASTS 0 /uL (0-3.1); URINE APPEARANCE CLEAR; URINE BACTERIA 62 /uL (0-1359); URINE BILIRUBIN NEGATIVE (NEGATIVE); URINE COLOR ORANGE; URINE GLUCOSE (UA) NEGATIVE (NEGATIVE); URINE KETONE NEGATIVE (NEGATIVE); URINE LEUK ESTERASE TRACE (NEGATIVE); URINE NITRITE NEGATIVE (NEGATIVE); URINE PROTEIN TRACE (NEGATIVE); URINE RBC 4251 /uL (0-23.9); URINE UROBILINOGEN 0.2 mg/dL (0.2-1.0); URINE WBC 16 /uL (0-25.8)
[2024-03-12 11:36] LABS: BASO % 0.2 % (0-2.0); HEMATOCRIT 36.9 % (32.4-45.2); HEMOGLOBIN 12.2 GM/dL (10.7-15.3); LYMPH % 13.3 % (8-40); MCHC 33.2 g/dl (32.0-36.0); MEAN CELL VOLUME 84.6 fl (80-96); MEAN PLT VOLUME 8.9 fl (7.5-11.1); MONO % 2.2 % (3.8-10.2); NEUT % 84.3 % (42.8-82.8); PLATELET COUNT 189 10^3/uL (134-434); RBC 4.36 M/mm3 (3.60-5.2); RDW 14.7 % (11.6-15.6); WHITE BLOOD COUNT 9.4 K/mm3 (4.0-10.0)
[2024-03-12] MEDS: SODIUM CHLORIDE 1,000 ML IV STA (11:39)
[2024-03-12 11:52] LABS: CHLORIDE 111 mmol/L (98-107); POTASSIUM 4.5 mmol/L (3.5-5.1); SODIUM 140 mmol/L (136-145)
[2024-03-12 11:54] LABS: CALCIUM 9.8 mg/dL (8.5-10.1); GLUCOSE,RANDOM 101 mg/dL (74-106)
[2024-03-12 11:55] LABS: ALBUMIN 4.2 g/dl (3.4-5.0); ANION GAP 3 mmol/L (4-13); BLOOD UREA NITROGEN 9.5 mg/dL (7-18); CO2 25 mmol/L (21-32)
[2024-03-12 11:57] LABS: SGOT/AST 20 U/L (15-37); SGPT/ALT 38 U/L (13-61)
[2024-03-12 11:58] LABS: CREATININE 0.8 mg/dL (0.55-1.3)
[2024-03-12 11:59] LABS: BILIRUBIN,TOTAL 0.4 mg/dL (0.2-1); TOT PROT 7.6 g/dl (6.4-8.2)
[2024-03-12 12:00] LABS: ALK PHOS 106 U/L (45-117)
[2024-03-12 14:43] VITALS: BP 96/64; PULSE 50; RESP 17; TEMP 98
[2024-03-12] MEDS: SODIUM CHLORIDE 0.9% 1000 ML INFUS.BAG IV ONE (14:44)
[2024-03-12] MEDS: ONDANSETRON 4 MG/2 ML VIAL IVPUSH ONE (15:17)
[2024-03-12] MEDS: HYDROmorphone HCl 2 MG/ML VIAL IVPUSH ONE (15:17)
[2024-03-12] MEDS ORDERED: TAMSULOSIN HCL 0.4 MG CAP ONE (15:43)
[2024-03-12] MEDS: TAMSULOSIN HCL 0.4 MG CAP PO ONE (15:47)
== END 2024-03-12 16:53 | disposition home or self-care (01) ==
LOC: JER 09:37
PROC: 3E0337Z Introduction of Electrolytic and Water Balance Substance into Peripheral Vein, Percutaneous Approach (ICD-10-PCS; principal; 2024-03-12)
DX: R10.31 Right lower quadrant pain (principal); N13.2 Hydronephrosis with renal and ureteral calculous obstruction; R11.10 Vomiting, unspecified
CPT/HCPCS: 36415; 74177-TC; 76830-TC; 80053; 81003; 83690; 84702; 85025; 87086; 99285-25; Q9967